=== PATIENT | male | born 1980 | race Caucasian/White ===

== ENCOUNTER 2020-08-08 08:23 | Outpatient (REF) | payer BC, SELFPAY ==
[2020-08-08 11:28] LABS: Alanine Aminotransferase 20 U/L (0-40); Albumin Level 4.4 g/dL (3.5-5.0); Alkaline Phosphatase 58 U/L (39-117); Anion Gap 12 (12-20); Aspartate Amino Transferase 19 U/L (5-37); Bilirubin Total 0.8 mg/dL (0.0-1.0); Blood Urea Nitrogen 12 mg/dL (9-16); Calcium 9.3 mg/dL (8.4-10.2); Carbon Dioxide 31 mmol/L (22-29); Chloride 105 mmol/L (96-108); Cholesterol 188 mg/dL; Estimated Glomerular Filt Rate > 60; Glucose Fasting 81 mg/dL (60-99); HDL Cholesterol 44 mg/dL; LDL Cholesterol Calculated 113 mg/dl; Sodium 144 mmol/L (135-145); Total Protein 6.9 g/dL (6.5-8.0); Triglycerides 155 mg/dL
[2020-08-08 11:51] LABS: TSH reflex Free T4 1.22 uIU/mL (0.32-4.0)
== END 2020-08-08 08:24 | disposition home or self-care (01) ==
LOC: HO.HMGCLDS 08:23
PROVIDERS: PCP Nurse Practitioner Family; Visit Provider Nurse Practitioner Family
DX: G43.909 Migraine, unspecified, not intractable, without status migrainosus (principal)
CPT/HCPCS: 36415; 80053; 80061; 84443

== ENCOUNTER 2021-07-28 20:24 | Emergency (ER) | payer BC, SELFPAY ==
[2021-07-28 20:40] VITALS: BP 147/106; PULSE 93; RESP 18; TEMP 37; O2SAT 97; BMI 26.6
[2021-07-28 21:09] VITALS: BP 148/82; PULSE 85; RESP 18; TEMP 36.6; O2SAT 97
--- NOTE | 2021-07-28 21:39 | ED_ITS ---
HPI - Back Pain/Injury General Chief Complaint: Extremity Injury, Lower Stated Complaint: Lower back pain-No inj Time Seen by Provider: 07/28/21 21:22 Source: patient Mode of arrival: ambulatory Limitations: no limitations History of Present Illness HPI Narrative: 40-year-old male who presents emergency department for evaluation of left lower back pain. The patient states that he works in the [employer] department at a [employer]. He states that yesterday he was moving tires, my fluids and other heavy car parts. He did not notice any injury at work. He states that yesterday around 20:00 hours he started to get pain in the lower lumbar center of his back and his left lower back. He describes the pain as an achy sensation is if he has pulled a muscle. The pain radiates down the back of his leg to just above his knees. He denies any numbness or weakness in his lower extremities. He denied loss of bowel or bladder control. He states the pain is a constant 9/10 pain the pain is worse with movement. He states that he rarely gets back pain. Patient took ibuprofen 400 mg twice a day and Aleve with no relief his pain . He states the pain is worse with lying down flat. Pain is also worse with movement. He denied associated symptoms such as fever, chills, cough, frequency urgency or dysuria. MD elicited complaint: back pain and back injury (Moving heavy car parts at work, pain started afterwards) Onset (ago): day(s) (2) Timing: constant Severity: severe Pain scale (0-10): 9 Similar Symptoms Previously: No Quality: aching ( feels like a pulled muscle ) and spasming Location: lumbar spine and left lower back Radiation: left upper leg and right upper leg Exacerbating factors: movement and other (Lying flat) Relieving factors: none Associated symptoms: denies other symptoms Treatments prior to arrival: NSAIDS Related Data Home Medications Medication Instructions Recorded Confirmed multivitamin 1 tab PO DAILY 08/02/20 12/08/20 Previous Rx's Medication Instructions Recorded sumatriptan succinate 25 mg tablet See Rx Instructions PO .COMPLEX 08/02/20 30 Days #10 tab amitriptyline 25 mg tablet 25 mg PO BEDTIME 30 Days #30 tab 06/11/21 cyclobenzaprine 10 mg tablet 10 mg PO TID PRN #15 tab 02/04/22 Allergies Allergy/AdvReac Type Severity Reaction Status Date / Time No Known Allergies Allergy Verified 05/08/21 15:44 Review of Systems Verdana 4l Review of Systems: Yes all other systems are reviewed and Verdana 4d are negative [facility] Past Medical History [facility] Narrative: Past medical history: None. Past surgical history: None. Social history: Patient smokes 15 cigarettes per day times 20 years. Denies alcohol use. He states he smokes marijuana daily. Family History Family History Father Prostate cancer Mother No problems noted. Social History Social History Housing: House Alcohol intake: never Patient Tobacco Use Status: Current everyday Tobacco user Cigarettes Per Day: 10 Years Smoked: 20 Advance Directives: No Advance Directives Information Provided: No Current occupational status: employed Physical Exam Verdana 4l Vital Signs: Verdana 4d Verdana 4d Vital Signs: Verdana 4d Verdana 4Bd Last Vital Signs Verdana 4d Business Office Director New 4d Business Office Director New 4d Temp 97.8 F 07/28/21 21:09 Business Office Director New 4d Pulse 85 07/28/21 21:09 Business Office Director New 4d Resp 18 07/28/21 21:09 BP 148/82 H 07/28/21 21:09 Pulse Ox 97 07/28/21 21:09 BMI result Body Mass Index 26.6 Const: General: cooperative and no acute distress Orientation/consciousness: oriented to person and oriented to place Limitations: no limitations HENMT: Head: Yes normal to inspection, Yes normocephalic and Yes atraumatic Ears: external ears normal General nose exam: Normal external nose present Face and sinus: Yes normal facial exam Mouth: Normal oral and palatal mucosa present Throat: Yes posterior oropharynx normal Eyes: General: appearance normal, both eyes and all related structures Pupils: Equal, round and reactive pupils present Neck: Neck: Yes normal visual inspection, Yes no lymphadenopathy, Yes trachea midline and Yes supple Chest: Chest palpation & inspection: normal inspection of the chest and normal palpation of entire chest wall Resp: Effort & Inspection: normal respiratory effort and able to speak in complete sentences Auscultation: clear to auscultation bilaterally Cardio: Rate: regular rate Rhythm: regular rhythm Heart sounds: S1 normal heart sound present, S2 normal heart sound present and no murmurs GI: Inspection: Yes normal to inspection Palpation (GI): Soft to palpation, nontender and no guarding Auscultation: normal bowel sounds Back/Spine/Pelvis: Other: Patient has tenderness palpation of his lumbar spine and left lumbar paraspinal muscles, there is spasm of these muscles as well. He has negative straight leg raise bilateral. Skin: General skin exam: no rashes or lesions noted Neuro: General: oriented to person and oriented to place Cranial nerves: Yes CN's II-XII intact bilaterally and Yes Equal, round and reactive pupils present Cognition (Neuro): normal cognition Motor exam (neuro): 5/5 motor strength present throughout Extrem: General: Yes normal to inspection Psych: Appearance: grossly normal Speech and movement: Normal speech and movement present Affect: normal affect Attitude: cooperative Thought process: Normal thought process present Thought content: Normal thought content present Course Course Course Narrative: 40-year-old male who presents emergency department for evaluation of left lower back pain x2 days with pain radiating down the back of his legs, no relief with NSAIDs at home. Pain is worse with lying down with movement. He has had no other associated symptoms. Physical exam is did reveal an elevated blood pressure of 147/106 but I think this is secondary to his pain. Vital signs were otherwise normal. Patient exam is consistent with musculoskeletal strain of the lumbar sacral paraspinal muscles. He was advised to take Tylenol, ibuprofen and he was prescribe cyclobenzaprine. He was given Toradol 60 mg IM here in the emergency department and cyclobenzaprine 10 mg orally. Patient was discharged home with printed and verbal instructions. Discharge Plan Discharge Clinical Impression: Acute lumbar myofascial strain Qualifiers: Encounter type: initial encounter Qualified Code(s): S39.012A - Strain of muscle, fascia and tendon of lower back, initial encounter Patient Disposition: Home, Self-Care Instructions: Acute Low Back Pain (ED) Additional Instructions: Back Pain Discharge Instructions: Take Motrin (ibuprofen) 200 mg pills, 3 pills every 6 hours as needed for pain. Take Tylenol (acetaminophen) 500 mg pills, 2 pills every 6 hours as needed for pain. Take Flexeril (cyclobenzaprine) 10 mg pills, 1 pill every 8 hours as needed for pain or muscle spasm. This is a prescription medication. This medication will make you sleepy, therefore do not drive or work while taking this medication. Apply ice for 15 minutes to the area that hurts on your back, then apply a heating a pad on low for 15 minutes. Do this 4-6 times a day to help reduce the pain in your back. Continue with normal activities as tolerated since staying in bed and not moving around will make your pain worse. You can also try over the counter lidocaine patches as directed on the box to help with the pain. Please return to the Emergency Department or see your doctor immediately if your symptoms get worse or if you develop any new symptoms that are concerning you. Follow up with your doctor in 2 day. Please read the other printed discharge instructions on back pain. Prescriptions: New cyclobenzaprine 10 mg tablet 10 mg PO TID PRN (Reason: pain, muscle spasm) Qty: 15 0RF No Action amitriptyline 25 mg tablet 25 mg PO BEDTIME 30 Days Qty: 30 2RF multivitamin Tablet 1 tab PO DAILY 0RF sumatriptan succinate 25 mg tablet See Rx Instructions PO .COMPLEX 30 Days Qty: 10 0RF Rx Instructions: take 1 tab at onset of headache; if no relief may repeat 1 tab after at least 2 hrs; max = 4 tabs/24 hr PO
[2021-07-28] MEDS: Cyclobenzaprine HCl 10 MG TABLET PO (21:52)
[2021-07-28] MEDS: Ketorolac Tromethamine 60 MG/2 ML VIAL IM (21:53)
== END 2021-07-28 22:10 | disposition home or self-care (01) ==
PROVIDERS: Emergency Provider Emergency Medicine Emergency Medical Services; PCP Nurse Practitioner Family
DX: S39.012A Strain of muscle, fascia and tendon of lower back, initial encounter (principal); X50.0XXA Overexertion from strenuous movement or load, initial encounter; Y93.89 Activity, other specified; Y92.59 Other trade areas as the place of occurrence of the external cause; Y99.0 Civilian activity done for income or pay
CPT/HCPCS: 96372; 99284; J1885

== ENCOUNTER 2022-02-12 07:29 | Outpatient (REF) | payer BC, SELFPAY ==
[2022-02-12 11:19] LABS: MANUAL DIFF FLAG NO
[2022-02-12 11:31] LABS: Basophils Absolute Auto 0.1 X10*3/uL (0.0-0.2); Basophils Percent Auto 0.9 % (0-2); Eosinophils Absolute Auto 0.3 X10*3/uL (0.0-0.4); Eosinophils Percent Auto 3.3 % (0-4); Hematocrit 41.3 % (42.0-52.0); Hemoglobin 14.7 g/dl (14.0-18.0); Imm Gran Abs Auto 0.02 X10*3/uL (0.00-0.03); Imm Gran Pct Auto 0.3 % (0.0-0.4); Lymphocytes Absolute Auto 2.8 X10*3/uL (1.2-4.9); Lymphocytes Percent Auto 35.8 % (20-40); Mean Corpuscular HGB Conc 35.6 g/dl (31.0-36.0); Mean Corpuscular Hemoglobin 32.2 pg (27.0-33.0); Mean Corpuscular Volume 90.6 fL (80.0-98.0); Monocytes Absolute Auto 0.6 X10*3/uL (0.1-1.2); Monocytes Percent Auto 7.8 % (2-11); Neutrophils Absolute Auto 4.1 x10*3/uL (2.0-8.3); Neutrophils Percent Auto 51.9 % (45-73); Platelet Count 228 X10*3/uL (160-400); Red Blood Count 4.56 X10*6/uL (4.60-5.80); Red Cell Distribution Width 12.1 % (11.0-16.0); White Blood Count 7.9 X10*3/uL (4.8-10.8)
[2022-02-12 11:34] LABS: Appearance Urine Clear; Color Urine Yellow; Glucose Urine UA Negative (Negative); Leukocyte Esterase Urine Negative (Negative); Nitrite Urine Negative (Negative); Urine Blood Large (3+) (Negative); Urine Ketones Negative (Negative); Urine Protein Negative (Neg-Trace)
[2022-02-12 11:37] LABS: Bacteria Urine None Seen (None Seen); Hyaline Casts Urine 0-2 /LPF (0-2); RBC Urine >20 /HPF (0-2); Squamous Epithelial Cell Urine 0-2 /HPF (0-2); WBC Urine 0-5 /HPF (0-5)
[2022-02-12 12:03] LABS: Alanine Aminotransferase 18 U/L (0-40); Albumin Level 4.1 g/dL (3.5-5.0); Alkaline Phosphatase 60 U/L (39-117); Anion Gap 13 (12-20); Aspartate Amino Transferase 17 U/L (5-37); Bilirubin Total 0.6 mg/dL (0.0-1.0); Blood Urea Nitrogen 8 mg/dL (9-16); Calcium 9.1 mg/dL (8.4-10.2); Carbon Dioxide 29 mmol/L (22-29); Chloride 103 mmol/L (96-108); Cholesterol 201 mg/dL; Estimated Glomerular Filt Rate > 60; Glucose Fasting 94 mg/dL (60-99); HDL Cholesterol 43 mg/dL; LDL Cholesterol Calculated 128 mg/dl; Potassium 3.9 mmol/L (3.3-5.1); Sodium 141 mmol/L (135-145); Total Protein 6.6 g/dL (6.5-8.0); Triglycerides 153 mg/dL
[2022-02-12 12:26] LABS: TSH reflex Free T4 1.34 uIU/mL (0.32-4.0)
== END 2022-02-12 07:30 | disposition home or self-care (01) ==
LOC: HO.HMGCLDS 07:29
PROVIDERS: PCP Nurse Practitioner Family; Visit Provider Nurse Practitioner Family
DX: Z00.00 Encounter for general adult medical examination without abnormal findings (principal)
CPT/HCPCS: 36415; 80053; 80061; 81001; 84443; 85025

== ENCOUNTER 2022-03-05 06:19 | Outpatient (REF) | payer BC, SELFPAY ==
[2022-03-05 11:16] LABS: Urine Cytology See Pathology rpt
[2022-03-05 11:34] LABS: Appearance Urine Clear; Color Urine Yellow; Glucose Urine UA Negative (Negative); Leukocyte Esterase Urine Negative (Negative); Nitrite Urine Negative (Negative); Specific Gravity - Urine <= 1.005 (1.005-1.025); Urine Blood Moderate (2+) (Negative); Urine Ketones Negative (Negative); Urine Protein Negative (Neg-Trace)
[2022-03-05 11:43] LABS: Bacteria Urine None Seen (None Seen); Hyaline Casts Urine 0-2 /LPF (0-2); Squamous Epithelial Cell Urine 0-2 /HPF (0-2); WBC Urine 0-5 /HPF (0-5)
[2022-03-05 11:46] LABS: UACC Culture Trigger NO
== END 2022-03-05 06:20 | disposition home or self-care (01) ==
LOC: HO.HMGCLDS 06:19
PROVIDERS: PCP Nurse Practitioner Family; Visit Provider Nurse Practitioner Family
DX: R31.29 Other microscopic hematuria (principal)
CPT/HCPCS: 81001; 87086; 88112

== ENCOUNTER 2022-03-19 15:17 | Outpatient (REF) | payer BC, SELFPAY ==
--- NOTE | ~2022-03-19 | US_ITS ---
EXAMINATION: US RETROPERITONEAL COMPLETE (RENAL) CLINICAL INFORMATION: Other microscopic hematuria. COMPARISON: None TECHNIQUE: Real-time imaging of the kidneys and bladder. FINDINGS: RIGHT KIDNEY: 9.5 x 4.8 x 6.3 cm (SAG x AP x TRV). The kidney is normal in size, contour, and echogenicity. Renal cortical thickness is normal. No hydronephrosis. Benign-appearing renal cysts measuring up to 1.2 cm, no follow-up imaging recommended. 3 mm nonobstructing right midpole renal stone. LEFT KIDNEY: 11.7 x 4.7 x 5.8 cm (SAG x AP x TRV). The kidney is normal in size, contour, and echogenicity. Renal cortical thickness is normal. No calculi or focal parenchymal lesions. No hydronephrosis. BLADDER: Well distended and normal. Bilateral ureteral jets are demonstrated. Prevoid bladder volume is 345 mL. Postvoid bladder volume is 9.97 mL. Prostate volume 24.1 mL. US/US retroperitoneal comp IMPRESSION: 3 mm nonobstructing right midpole renal stone.
== END 2022-03-19 15:18 | disposition home or self-care (01) ==
LOC: HO.HMGCX 15:17
PROVIDERS: PCP Nurse Practitioner Family; Visit Provider Nurse Practitioner Family
DX: R31.29 Other microscopic hematuria (principal)
CPT/HCPCS: 76770

== ENCOUNTER 2023-11-12 08:22 | Outpatient (AMB) | payer BC, SELFPAY ==
--- NOTE | 2023-11-12 08:25 | MHC.PC.OV ---
Vital Signs 11/12/23 08:26 11/12/23 08:53 Height 5 ft 5 in Weight 156 lb BMI 26.0 BP 130/90 H 130/82 Blood Pressure Location Rt brachial Rt brachial Position Sitting Sitting Pulse 80 Pulse Source Pulse Oximeter Pulse Oximetry (%) 98 Oxygen Delivery Method Room Air Intake Visit Reasons: PE Intake Note: Patient here for physical exam. Allergies No Known Allergies Allergy (Verified 11/12/23 08:51) Medication List - Last Reconciled 11/12/23 by YEYO Lazaro amitriptyline 25 mg PO BEDTIME 30 days multivitamin 1 tab PO DAILY Tobacco use date assessed: 11/12/23 Dental Screening Dental Screen Date: 11/12/23 Did you have a dental visit in the last 12 months?: Yes Did you have a dental problem in the last 6 months where you did not have access to dental care?: No Was dental information given to patient?: Patient has dentist HPI PE HPI Details Pt is here for a PE. Will order labs. Pt reports an area of macular erythema to his upper abdomen (tinea). Will send cream. [facility] Family History Father Prostate cancer Mother No problems noted. Social History Housing: House Alcohol intake: never Patient Tobacco Use Status: Current everyday Tobacco user Cigarettes Per Day: 10 Years Smoked: 20 e-Cigarette/Vaping Use: Never Used Second Hand Smoke Exposure: No service: No Current occupational status: employed Current occupation: [employer] Cognitive needs: No Hearing needs: No Vision needs: No Questionnaire PHQ-9 Over the last 2 weeks, how often have you been bothered by any of the following problems? 1. Little interest or pleasure in doing things: not at all 2. Feeling down, depressed, or hopeless: not at all 3. Trouble falling or staying asleep, or sleeping too much: not at all 4. Feeling tired or having little energy: not at all 5. Poor appetite or overeating: not at all 6. Feeling bad about yourself - or that you are a failure or have let yourself or your family down: not at all 7. Trouble concentrating on things, such as reading the newspaper or watching television: not at all 8. Moving or speaking so slowly that other people could have noticed. Or the opposite - being so fidgety or restless that you have been moving around a lot more than usual: not at all 9. Thoughts that you would be better off or of hurting yourself in some way: not at all Total score: 0 Depression Screening Interpretation: Negative Depression Screening Done: Yes 52109 - PHQ-9 Billing: Yes Source: Developed by Drs. Suhas De Guzman, Lakeshia Hanson, Pavan Platt and colleagues, with an educational kirit from [employer]. Thrive Questionnaire Date Thrive assessed: 11/12/23 I am a: Patient What is your living situation today?: I have a steady place to live Within the past 12 months, did the food you bought not last and you didn't have the money to get more?: Never true Within the past 12 months, did you worry whether your food would run out before you got money to buy more?: Never true Do you have trouble paying for medicines?: No Do you have trouble getting transportation to medical appointments?: No Do you have trouble paying your heating and electricity bill?: No Do you have trouble taking care of your child, family member or friend?: No Do you have trouble with day-to-day activities such as bathing, preparing meals, shopping, managing finances, etc.?: No Are you currently unemployed and looking for a job?: No Are you interested in more education?: No Currently or been in a relationship where the following occur: I choose not to answer this question THRIVE Score: 0 AUDIT C Alcohol Use Questionnaire (AUDIT-C) 1. How often do you have a drink containing alcohol?: Never 3. How often do you have six or more drinks on one occasion?: Never Total Score: 0 Score Reviewed/Action Taken: No JESSICA-7 AMB Questionnaire JESSICA-7 Date JESSICA - 7 assessed: 11/12/23 Feeling nervous, anxious, or on edge: 0 = Not at all Not being able to stop or control worryin = Not at all Worrying too much about different things: 0 = Not at all Trouble relaxin = Not at all Being so restless that it is hard to sit still: 0 = Not at all Becoming easily annoyed or irritable: 0 = Not at all Feeling afraid as if something awful might happen: 0 = Not at all Total JESSICA-7 score (0-4 normal; 5-9 mild; 10-14 moderate; 15-21 severe): 0 Source: Developed by Drs. Suhas De Guzman, Lakeshia Hanson, Pavan Platt and colleagues, with an educational kirit from [employer]. JESSICA-7 Assessment Billing JESSICA-7 Assessment Tool: JESSICA-7 Assessment 53350 Review of Systems Const Denies chills and Denies fever(s) Eyes Denies blurry vision ENT Denies vertigo, Denies dizziness and Denies sore throat Card Denies chest pain at rest, Denies chest pain with activity, Denies diaphoresis, Denies dyspnea and Denies dyspnea on exertion Resp Denies cough, Denies dyspnea, Denies dyspnea on exertion and Denies wheezing GI Denies abdominal pain, Denies melena, Denies hematochezia, Denies constipation, Denies diarrhea and Denies loose stools Denies hematuria Musc Denies numbness and Denies tingling Skin/Breast Denies lesions Neuro Denies vertigo, Denies dizziness, Denies numbness and Denies tingling Psych Denies anxiety, Denies depression, Denies homicidal ideation, Denies suicidal ideation and Denies other (substance abuse) Aller/Immun Denies wheezing Physical exam (Primary Care) Vital Signs: Last Vital Signs Pulse 80 11/12/23 08:26 BP 130/82 11/12/23 08:53 Pulse Ox 98 11/12/23 08:26 Oxygen Delivery Method Room Air 11/12/23 08:26 BMI result Body Mass Index 26.0 Tobacco/Smoking Status: Tobacco use Status Tobacco use date assessed 11/12/23 11/12/23 08:29 Patient Tobacco Use Status Current everyday Tobacco 11/12/23 08:26 e-Cigarette/Vaping Use Never Used 11/12/23 08:26 Depression Screening Interpretation: Negative Thrive Assessment: Date of Thrive Assessment Date Thrive assessed 10/30/22 11/12/23 08:26 Currently or been in a relationship where the following occur: I choose not to answer this question Const General: cooperative Nutritional Appearance: well nourished Orientation/consciousness: patient oriented x3 HENMT Head: Yes normal to inspection, Yes normocephalic and Yes atraumatic Ears: TM's normal bilaterally Eyes General: appearance normal, both eyes and all related structures Alignment and Position: alignment normal and position normal Neck Neck: Yes normal visual inspection and Yes no lymphadenopathy Thyroid: Thyroid normal Resp Effort & Inspection: normal respiratory effort Auscultation: clear to auscultation bilaterally Cardio Rate: regular rate Rhythm: regular rhythm Heart sounds: S1 normal heart sound present, S2 normal heart sound present and no murmurs GI Palpation (GI): Soft to palpation and nontender Auscultation: normal bowel sounds Male General Exam: Yes normal external exam Penis: normal penis Scrotum: scrotum normal, testes descended bilaterally and no inguinal hernias Testes: no testicular mass Skin Other: upper abdomen with area of macular erythema, dry appearing (tinea) Neuro General: patient oriented x3, moves all extremities, no focal motor deficits and deep tendon reflexes 2+ bilaterally Romberg Test: Negative Psych Appearance: grossly normal Mental Status: mental status grossly normal Speech and movement: Normal speech and movement present Affect: normal affect Attitude: cooperative Thought process: Normal thought process present Thought content: Normal thought content present Insight: Good insight present (Psych) Judgement: Good judgement present (Psych) Assessment and Plan Assessment & Plan (1) Tinea versicolor: Code(s): B36.0 - Pityriasis versicolor Plan: cream sent (2) Encounter for routine adult physical exam with abnormal findings: Code(s): Z00.01 - Encounter for general adult medical examination with abnormal findings Plan The patient agreed to the use of a medical records receptionist for this encounter. Scribed for YEYO Walter by Casie Stern medical records receptionist, on 11/12/2023 at 08:55 EST. Orders: Orders Complete Blood Count Auto Diff Today Z00.00 - Encounter for general adult medical examination without abnormal findings TSH reflex Free T4 Today Z00.00 - Encounter for general adult medical examination without abnormal findings Lipid Panel Today Z00.00 - Encounter for general adult medical examination without abnormal findings Comprehensive [place]. Panel Fast Today Z00.00 - Encounter for general adult medical examination without abnormal findings UA CC w/rflx Micro + Cult Today Z00.00 - Encounter for general adult medical examination without abnormal findings Medications: New ketoconazole 2% 1 appl topical BID PRN 60 grams 0RF fungal rash Coding Level of Care Code Est Pt Prev Care 40-64y(28854) Diagnoses Tinea versicolor B36.0 Encounter for routine adult physical exam with abnormal findings Z00.01 Additional Codes JESSICA-7 Assessment Billing - JESSICA-7 Assessment Tool: JESSICA-7 Assessment 11229 ([id number])
[2023-11-12 08:26] VITALS: BP 130/90; PULSE 80; O2SAT 98; BMI 26.0
[2023-11-12 08:53] VITALS: BP 130/82
== END 2023-11-12 09:04 | disposition home or self-care (01) ==
PROVIDERS: Visit Provider Nurse Practitioner Family
DX: Z00.01 Encounter for general adult medical examination with abnormal findings (principal); B36.0 Pityriasis versicolor
CPT/HCPCS: 99213; 99396

== ENCOUNTER 2023-11-12 09:04 | Outpatient (REF) | payer BC, SELFPAY ==
[2023-11-12 10:22] LABS: MANUAL DIFF FLAG NO
[2023-11-12 10:28] LABS: Appearance Urine Clear; Color Urine Yellow; Glucose Urine UA Negative (Negative); Leukocyte Esterase Urine Negative (Negative); Nitrite Urine Negative (Negative); PH 8.5 (5.0-9.0); UMIC TRIGGER UACC YES; Urine Blood Large (3+) (Negative); Urine Ketones Negative (Negative); Urine Protein Negative (Neg-Trace)
[2023-11-12 10:33] LABS: Bacteria Urine None Seen (None Seen); Basophils Absolute Auto 0.1 X10*3/uL (0.0-0.2); Basophils Percent Auto 0.6 % (0-2); Eosinophils Absolute Auto 0.2 X10*3/uL (0.0-0.4); Eosinophils Percent Auto 2.5 % (0-4); Hematocrit 41.7 % (42.0-52.0); Hemoglobin 14.7 g/dl (14.0-18.0); Hyaline Casts Urine 0-2 /LPF (0-2); Imm Gran Abs Auto 0.02 X10*3/uL (0.00-0.03); Imm Gran Pct Auto 0.2 % (0.0-0.4); Lymphocytes Absolute Auto 2.1 X10*3/uL (1.2-4.9); Lymphocytes Percent Auto 24.5 % (20-40); Mean Corpuscular HGB Conc 35.3 g/dl (31.0-36.0); Mean Corpuscular Hemoglobin 31.6 pg (27.0-33.0); Mean Corpuscular Volume 89.7 fL (80.0-98.0); Mean Platelet Volume 9.9 fL (9.4-12.4); Monocytes Absolute Auto 0.6 X10*3/uL (0.1-1.2); Monocytes Percent Auto 7.2 % (2-11); Neutrophils Absolute Auto 5.4 x10*3/uL (2.0-8.3); Platelet Count 232 X10*3/uL (160-400); RBC Urine >20 /HPF (0-2); Red Blood Count 4.65 X10*6/uL (4.60-5.80); Red Cell Distribution Width 12.1 % (11.0-16.0); Squamous Epithelial Cell Urine 0-2 /HPF (0-2); WBC Urine 0-5 /HPF (0-5); White Blood Count 8.4 X10*3/uL (4.8-10.8)
[2023-11-12 11:14] LABS: Alanine Aminotransferase 18 U/L (0-40); Albumin Level 4.2 g/dL (3.5-5.0); Alkaline Phosphatase 57 U/L (39-117); Anion Gap 14 (12-20); Aspartate Amino Transferase 17 U/L (5-37); Bilirubin Total 0.8 mg/dL (0.0-1.0); Blood Urea Nitrogen 8 mg/dL (9-16); Calcium 9.6 mg/dL (8.4-10.2); Carbon Dioxide 27 mmol/L (22-29); Chloride 104 mmol/L (96-108); Cholesterol 183 mg/dL (<200); Estimated Glomerular Filt Rate > 60; Glucose Fasting 90 mg/dL (60-99); HDL Cholesterol 42 mg/dL (>40); LDL Cholesterol Calculated 106 mg/dL (<100); Sodium 141 mmol/L (135-145); Total Protein 6.6 g/dL (6.5-8.0); Triglycerides 179 mg/dL (<150)
[2023-11-12 11:22] LABS: TSH reflex Free T4 1.06 uIU/mL (0.32-4.0)
== END 2023-11-12 09:05 | disposition home or self-care (01) ==
LOC: HO.HMGCLDS 09:04
PROVIDERS: PCP Nurse Practitioner Family; Visit Provider Nurse Practitioner Family
DX: Z00.00 Encounter for general adult medical examination without abnormal findings (principal)
CPT/HCPCS: 36415; 80053; 80061; 81001; 84443; 85025

== ENCOUNTER 2024-01-21 09:51 | Outpatient (REF) | payer BC, SELFPAY ==
--- NOTE | ~2024-01-21 | CT_ITS ---
EXAMINATION: CT UROGRAM - CT ABDOMEN AND PELVIS WITHOUT AND WITH CONTRAST CLINICAL INFORMATION: Microscopic hematuria. COMPARISON: Renal ultrasound 03/19/2022. TECHNIQUE: Multidetector volumetric imaging was performed through the abdomen prior to IV contrast. The abdomen and pelvis were then reexamined after the administration of 85 mL of Omnipaque 350 0 intravenous contrast. Additional 2-D coronal and sagittal reformatted images and axial 3-D maximum intensity projection MIP images are generated on the CT workstation. This CT examination was performed using dose optimization techniques as appropriate, variously including the following: *Automated exposure control. *Adjustment of mA and/or kV according to patient size (this includes techniques or standardized protocols for targeted exams where dose is matched to indication/reason for exam; i.e. extremities or head). *Use of iterative reconstruction technique. DLP: 507 mGy-cm UROGRAPHIC FINDINGS: Noncontrast imaging through the kidneys ureters and bladder show no urinary tract calculi. After the injection of contrast, there was prompt excretion bilaterally with symmetric CT nephrograms. The right kidney measures 10.7 cm and the left kidney measures 11.6 cm in maximal length. Bilateral benign Bosniak class I renal cysts are noted with a tiny subcentimeter cyst at the lower pole of the left kidney and 2 cysts on the right, the largest at the lower pole measuring 1.7 cm. These require no additional imaging or follow-up. No solid renal masses are seen. The renal collecting systems and the ureters appear normal without filling defects or mucosal abnormalities. There are single ureters on each side which follow a normal course to the bladder. The bladder appears unremarkable. Bilateral ureteral jets are seen. NON-UROGRAPHIC FINDINGS: Lung Bases: The visualized lung bases are unremarkable. Liver, Gallbladder and Biliary Tree: The liver is normal in size, shape, and attenuation. No focal hepatic lesion or biliary ductal dilatation is present. The gallbladder is unremarkable with no evidence of radiopaque gallstones, gallbladder wall thickening, or obvious pericholecystic inflammatory changes. Pancreas: Unremarkable. Spleen: Unremarkable. Adrenal Glands: Unremarkable. Gastrointestinal Tract: The small and large bowel are unremarkable. The appendix is unremarkable. Abdominal Wall: No significant hernia is appreciated. Lymph Nodes: No retroperitoneal lymphadenopathy. Vascular: Unremarkable. Pelvic Viscera: The prostate and seminal vesicles are unremarkable. Osseous Structures: Degenerative changes are seen in the lower thoracic spine. No bony destructive lesions. CT/CT urogram IMPRESSION: A cause for the patient's hematuria has not been found. Incidental note made of benign Bosniak class I renal cysts which require no additional imaging or follow-up. Electronically signed by: Edwin Catalan MD 02/27/2024 09:52 PM EDT
[2024-01-21] MEDS: iohexoL 350 MG/ML 75 ML INFUS..BTL 85 ML IV (10:26)
== END 2024-01-21 09:52 | disposition home or self-care (01) ==
LOC: HO.CT 09:51
PROVIDERS: PCP Nurse Practitioner Family; Visit Provider Nurse Practitioner Family
DX: R31.29 Other microscopic hematuria (principal)
CPT/HCPCS: 74178; 81003; Q9967

== ENCOUNTER 2024-01-21 13:48 | Outpatient (AMB) | payer BC, SELFPAY ==
--- NOTE | 2024-01-21 13:51 | A.OFFVIS_ITS ---
Intake Visit Reasons: chronic microscopic hematuria Intake Note: New Patient presents for initial visit for microscopic hematuria Urology Medications: none Blood Thinner: none Service Observer Chief Required: No Accompanied by: Self / Same As Patient Allergies No Known Allergies Allergy (Verified 01/21/24 14:44) Medication List - Last Reconciled 01/21/24 by YEYO Plata amitriptyline 25 mg PO BEDTIME 30 days ketoconazole 2% 1 appl topical BID PRN multivitamin 1 tab PO DAILY HPI Comments Details: Suhas Bustos is a very pleasant 43-year-old male patient of Dr. Abernathy. He presents to the office today as a new patient for microscopic hematuria. He reports having followed up with his PCP for his annual visit at which time urinalysis noted microscopic hematuria and referral was made for urology for further assessment evaluation. He reports having had CT urogram earlier this morning. In discussion with the patient today he reports a longstanding history of nicotine dependence for over 22 years. He reports smoking approximately half a pack per day. He otherwise denies any bothersome urinary issues or concerns. He denies denies urinary urgency, urinary frequency, incontinence, nocturia, hematuria, dysuria, foul smelling urine, changes to urinary stream, flank pain, fever, and or chills. He is happy with his current voiding parameters. Discussed at length potential causes of microscopic hematuria in the setting of nicotine dependence. I discussed reasons for blood in the urine may include but are not limited to kidney stones, cancer in the urinary tract, BPH, kidney stone disease or inflammatory conditions of the urinary tract. I have discussed workup to include cystoscopy evaluation. In office urinalysis results reviewed with the patient today 3+ microscopic hematuria. He otherwise offers no other issues or concerns at this time. [facility] Family History Father Prostate cancer Mother No problems noted. Social History Housing: House Alcohol intake: never Patient Tobacco Use Status: Current everyday Tobacco user Cigarettes Per Day: 10 Years Smoked: 20 e-Cigarette/Vaping Use: Never Used Second Hand Smoke Exposure: No service: No Current occupational status: employed Current occupation: [employer] Cognitive needs: No Hearing needs: No Vision needs: No Review of Systems Const All systems reviewed & are unremarkable except as noted in HPI and below Physical Exam Const General: cooperative, healthy appearing, comfortable, no acute distress, well developed, alert and awake Orientation/consciousness: patient oriented x3 Limitations: no limitations HEENT Head: Yes normal to inspection, Yes normocephalic and Yes atraumatic Ears: hearing grossly normal bilaterally Eyes General: appearance normal, both eyes and all related structures Neck Neck: Yes normal visual inspection and Yes trachea midline Chest Chest palpation & inspection: normal inspection of the chest Resp Effort & Inspection: normal respiratory effort and able to speak in complete sentences Cardio Rate: regular rate GI Inspection: Yes normal to inspection General: Yes no CVA tenderness Back/Spine/Pelvis Back: no CVA tenderness Skin General skin exam: no rashes or lesions noted Neuro General: patient oriented x3 Extrem General: Yes normal to inspection Psych Appearance: grossly normal and well kempt Mental Status: mental status grossly normal Speech and movement: Normal speech and movement present and Clear speech present Affect: normal affect Attitude: cooperative Thought process: Normal thought process present Thought content: Normal thought content present Insight: Fair insight present (Psych) Judgement: Fair judgement present (Psych) Results AMB Urinalysis, Automated UA Leukoctes 0 Marva/uL Last Edit by Carbonated Content on 01/21/24 14:19 UA Nitrite Negative Last Edit by Carbonated Content on 01/21/24 14:19 UA Urobilinogen 0.2 mg/dL Last Edit by Carbonated Content on 01/21/24 14:19 UA Protein 15 mg/dL Last Edit by Carbonated Content on 01/21/24 14:19 UA pH 6.5 Last Edit by Carbonated Content on 01/21/24 14:19 UA Blood 200 Yoshi/uL Last Edit by Carbonated Content on 01/21/24 14:19 UA Specific [place] 1.005 Last Edit by Carbonated Content on 01/21/24 14:19 UA Ketone Negative Last Edit by Carbonated Content on 01/21/24 14:19 UA Bilirubin 0 mg/dL Last Edit by Carbonated Content on 01/21/24 14:19 UA Glucose 0 mg/dL Last Edit by Carbonated Content on 01/21/24 14:19 Results Reviewed Results Reviewed: Laboratory Last Values Urine pH (Auto) 6.5 01/21/24 14:18 Specific [place] (Auto) 1.005 01/21/24 14:18 Urine Protein (Auto) 15 mg/dL 01/21/24 14:18 Glucose (UA)(Auto) 0 mg/dL 01/21/24 14:18 Urine Ketones (Auto) Negative 01/21/24 14:18 Urine Blood (Auto) 200 Yoshi/uL 01/21/24 14:18 Urine Nitrite (Auto) Negative 01/21/24 14:18 Urine Bilirubin (Auto) 0 mg/dL 01/21/24 14:18 Urine Urobilinogen (Auto) 0.2 mg/dL 01/21/24 14:18 Leukocyte Esterase (Auto) 0 Marva/uL 01/21/24 14:18 Assessment & Plan Assessment & Plan (1) Nicotine dependence: Code(s): F17.200 - Nicotine dependence, unspecified, uncomplicated Category: Medical (2) Microhematuria: Code(s): R31.29 - Other microscopic hematuria Category: Medical Plan In office urinalysis results reviewed with the patient today; as noted above; will send for urine cytology. CT urogram pending Discussed at length potential causes of microscopic hematuria in the setting of nicotine dependence. Discussed further workup to include in office cystoscopy however patient declines at this time; information provided Patient otherwise denies any bothersome urinary issues or concerns. He reports be happy with current voiding parameters. Follow-up in 3 months with imaging and urine cytology to be completed prior; or sooner with any issues, concerns, and or questions. Orders: Orders Urine Cytology Today R31.29 - Other microscopic hematuria AMB Urinalysis Automated Today Z13.9 - Encounter for screening, unspecified Patient Instructions: The patient had an opportunity to ask questions regarding the treatment plan. All questions were answered. Physical exam, labs, and imaging were discussed and reviewed in detail. As well as risks, benefits, and discussion of treatment choices. No major barriers to understanding were identified. The patient expressed understanding and agreement with the above treatment plan. The patient was made aware they should contact our office by phone for worsening of their current condition, the appearance of new symptoms, or with any questions or concerns. Compliance is encouraged with any medications and follow up testing that is ordered. It is a privilege to be allowed the opportunity to participate in? your urological care.? Again, if you have any questions or concerns If you have any questions or concerns please do not hesitate to contact me. The office is [phone]. This note is constructed using voice recognition software. While every effort has been made to ensure accuracy manager errors may have been included. Yours sincerely, YEYO Plata Coding Level of Care Code New Pt Level 3 (97269) Diagnoses Nicotine dependence F17.200 Microhematuria R31.29
== END 2024-01-21 14:30 | disposition home or self-care (01) ==
PROVIDERS: PCP Nurse Practitioner Family; Visit Provider Nurse Practitioner Family
DX: F17.200 Nicotine dependence, unspecified, uncomplicated (principal); R31.29 Other microscopic hematuria; Z13.9 Encounter for screening, unspecified
CPT/HCPCS: 99203

== ENCOUNTER 2024-01-21 16:01 | Outpatient (REF) | payer BC, SELFPAY ==
[2024-01-21 16:39] LABS: Urine Cytology See Pathology rpt
== END 2024-01-21 16:02 | disposition home or self-care (01) ==
LOC: HO.LAB 16:01
PROVIDERS: Visit Provider Nurse Practitioner Family
DX: R31.29 Other microscopic hematuria (principal)
CPT/HCPCS: 88112

== ENCOUNTER 2024-03-17 14:42 | Outpatient (AMB) | payer BC, SELFPAY ==
--- NOTE | 2024-03-17 15:00 | MHC.OFFVIS ---
Intake Visit Reasons: cysto Intake Note: Patient is present for Cystoscopy Urology Medication:NONE Antibiotic Allergy:NONE Blood Thinner:NONE Lot:[id number] Exp:04/27/27 Ship/Rec/Doc Control Required: No Allergies No Known Allergies Allergy (Verified 03/17/24 15:01) HPI Comments Details: Akash is a pleasant male. He is a patient of Dr. Aguilera. He is seen for the following urologic conditions - microscopic hematuria Office cystoscopy normal Microscopic hematuria CT urogram negative Longstanding history nicotine dependent so 22 years Proximally 10 year pack per day nicotine have it PFSH Medical History (Updated 02/29/24 @ 13:02 by Phillip Abernathy, [facility]) Bilateral renal cysts Family History Father Prostate cancer Mother No problems noted. Social History Housing: House Alcohol intake: never Patient Tobacco Use Status: Current everyday Tobacco user Cigarettes Per Day: 10 Years Smoked: 20 e-Cigarette/Vaping Use: Never Used Second Hand Smoke Exposure: No service: No Current occupational status: employed Current occupation: [employer] Cognitive needs: No Hearing needs: No Vision needs: No Review of Systems Const Denies chills and Denies fever(s) Card Reports no additional complaints and Denies syncope Resp Denies cough GI Denies abdominal pain and Denies heartburn Reports as per HPI and Denies change in libido Neuro Denies syncope Psych Denies change in libido Endo Denies change in libido Physical Exam Const General: cooperative, healthy appearing, comfortable and no acute distress Orientation/consciousness: patient oriented x3 HEENT Face and sinus: Yes normal facial exam Mouth: moist mucous membranes Neck Neck: Yes normal visual inspection, Yes full ROM and Yes trachea midline Chest Chest palpation & inspection: normal inspection of the chest Resp Effort & Inspection: normal respiratory effort, able to speak in complete sentences and no respiratory distress GI Inspection: Yes normal to inspection Back/Spine/Pelvis Cervical Spine: normal cervical lordosis Thoracic/Lumbar Spine: thoracic and lumbar spine normal to inspection Skin General skin exam: no rashes or lesions noted Neuro General: patient oriented x3, gait normal, tone normal and moves all extremities Extrem General: Yes normal to inspection and Yes capillary refill normal Office Procedures Cystoscopy Consent Discussed risk and benefit or proposed procedure with the patient. Information consent for procedure given to the patient. Discussed technical aspects, risks, benefits and alternatives in full. Addressed all of the patient's questions and concerns regarding the procedure. The patient demonstrated knowledge and understanding. They wish to proceed with this procedure. Preparation The patient was prepped in the usual manner. A motor teacher was present and in the room. Genitalia was prepped with betadine solution in a sterile manner. Lidocaine Jelly 2% was placed into the urethra and 16Fr flexible Olympus cystoscope was inserted into the meatus after adequate lubrication. Procedure Cystoscopy performed using a disposable Urovue digital 16 Wolof cystoscope. Meatus circumcised Urethra anterior and posterior urethra normal Prostatic Urethra unremarkable Bladder examination with retroflexion of cystoscope Bladder Orifices normal shape and position Bladder Capacity median Trabeculations normal Cellule Formation - Diverticulum Formation - Mucosal Erythema - Bladder Tumor - [id number] DISPOSABLE SCOPE URO-G FLEXIBLE SCOPE Procedure code (CPT) selection complete Office Meds lidocaine HCl 2 % mucosal jelly in applicator Performing Provider: Alberto Hayes MD Performing Location: [facility] [place] [facility] Administered by: Pete Lim LPN on 03/17/24 15:16 Dose Route Admin Location Dispensed Lot Number Expiration Date ND Mental Telepathist 10 mL intra-urethral 10 mL nitrofurantoin monohydrate/macrocrystals 100 mg capsule Performing Provider: Alberto Hayes MD Performing Location: [facility] [place] [facility] Administered by: Pete Lim LPN on 03/17/24 15:16 Dose Route Admin Location Dispensed Lot Number Expiration Date NDC Mental Telepathist 100 mg PO 1 cap naproxen 500 mg tablet Performing Provider: Alberto Hayes MD Performing Location: [facility] [place] [facility] Administered by: Pete Lim LPN on 03/17/24 15:16 Dose Route Admin Location Dispensed Lot Number Expiration Date NDC Mental Telepathist 500 mg PO 1 tab Assessment & Plan Assessment & Plan (1) Microhematuria: Code(s): R31.29 - Other microscopic hematuria Category: Medical Plan One year follow-up nurse-practitioner Orders: Orders AMB Cystoscopy 03/17/24 R31.29 - Other microscopic hematuria Patient Instructions: Imaging studies, laboratory and physical exam results were discussed and reviewed in detail. No major barriers to patient understanding were identified. An opportunity to ask questions regarding the treatment plan was provided. All questions were answered. The patient expressed understanding and agreement with the above treatment plan. The patient is aware they should contact our office by phone for worsening of their current condition or the appearance of new urologic symptoms. Compliance is encouraged with any medications and followup testing that is ordered. It is a privilege to participate in the urologic care of your patient. If you have any questions or concerns regarding treatment for the above conditions, or other urologic issues, please do not hesitate to contact me. The office telephone contact is [phone]. This note is constructed using voice recognition software. While every effort has been made to ensure accuracy simulation engineer errors may have been included. Yours sincerely, Dr Alberto Hayes MD, [facility] - Urology Providers of Expert, Compassionate Care for the Genitourinary System Coding Level of Care Code Est Pt Level 3 (89728) Diagnoses Microhematuria R31.29 CPT Codes Cystoscopy - CPT: 29307-[id number] ([id number])
== END 2024-03-17 16:04 | disposition home or self-care (01) ==
PROVIDERS: PCP Nurse Practitioner Family; Visit Provider Urology
DX: R31.29 Other microscopic hematuria (principal)
CPT/HCPCS: 52000

== ENCOUNTER → 2024-03-17 14:42 | Outpatient (BNVA) | payer BC, SELFPAY | PROVIDERS: PCP Nurse Practitioner Family; Visit Provider Urology | DX: R31.29 Other microscopic hematuria (principal) | CPT/HCPCS: 52000 ==

== ENCOUNTER 2025-03-03 13:33 | Outpatient (AMB) | payer BC, SELFPAY ==
[2025-03-03 13:35] VITALS: BP 144/78; PULSE 68; RESP 18; TEMP 37.2; O2SAT 98; BMI 27.1
--- NOTE | 2025-03-03 13:35 | A.OFFPC_ITS ---
Vital Signs 03/03/25 13:35 Height 5 ft 5 in Weight 163 lb BMI 27.1 BP 144/78 H Blood Pressure Location Lt brachial Position Sitting Respiration 18 Pulse 68 Pulse Source Pulse Oximeter Temp 98.9 F Temp Source Oral Pulse Oximetry (%) 98 Oxygen Delivery Method Room Air Intake Visit Reasons: Annual PE Intake Note: Pt is here today for PE. Allergies No Known Allergies Allergy (Verified 03/03/25 13:37) Medication List - Last Reconciled 03/03/25 by MAX Lazaro- amitriptyline 25 mg PO BEDTIME 30 days ketoconazole 2% 1 appl topical BID PRN multivitamin 1 tab PO DAILY Tobacco use date assessed: 03/03/25 Dental Screening Dental Screen Date: 03/03/25 Did you have a dental visit in the last 12 months?: Yes Did you have a dental problem in the last 6 months where you did not have access to dental care?: No Was dental information given to patient?: Patient has dentist HPI Annual PE HPI Details History of Present Illness The patient is a 44-year-old male presenting with a physical exam and management of ongoing migraines. He experiences severe migraines weekly, sometimes daily, leading to nausea and vomiting. The migraines start in the frontal region and radiate to the occipital area. Excedrin Migraine provides some relief but causes a fuzzy feeling. Pt further describes photophobia, sonophobia, anosmia. The patient has a history of kidney cysts and microhematuria, managed by a urologist. He reports nocturnal palpitations, described as a heavy heart, without chest pain or radiating symptoms. He has tinea corporis with small erythematous macular lesions on the anterior torso, treated with a cream. Health Maintenance - Neurology referral for migraine manage ment - MRI ordered for further evaluation of migraines - EKG planned for evaluation of palpitat ions Social History Review of Systems - Neurological: Reports severe migraines weekly, sometimes daily, with nausea and vomiting. Denies other neurological symptoms. - Cardiovascular: Reports palpitations a t night when lying still, described as a heavy heart. Denies chest pain or radiating symptoms to the upper extremities. Physical Exam General: Cooperative, healthy appearing, comfortable, no acute distress and well developed Orientation: Patient oriented x3 Limitations: No limitations Head: Normal to inspection Ears: Hearing grossly normal bilaterally Nose: Normal external nose present Face and sinus: Normal facial exam Eyes: Appearance normal, both eyes and all related structures Neck: Normal visual inspection and Yes full ROM Respiratory: Normal respiratory effort and able to speak in complete sentences. Clear to auscultation bilaterally Cardiovascular: Regular rate and rhythm. Normal S1 and S2. GI: Normal to inspection. Soft to palpation and nontender : Testicles without masses/lesions and no hernias appreciated. Skin: Small erythematous circular macular lesions on anterior upper torso Neuro: Patient oriented x3. CN3 through 12 intact Extremities: Normal to inspection Results Plan 1. Migraine The patient will continue using Excedrin Migraine for symptomatic relief. Magnesium 400 mg at night and vitamin B2 in the morning are recommended as preventative measures. A neurology referral is planned for further evaluation and management. An MRI is ordered to assess the underlying cause of the migraines. 2. Palpitations An EKG is planned to evaluate the reported palpitations. The patient denies any associated chest pain or radiating symptoms. 3. Tinea Corporis The patient is using a topical cream for the treatment of tinea corporis. 4. HTN: [facility] have [facility] and send myself values. Discussion Notes I discussed with the patient the management of his migraines, including the continuation of Excedrin Migraine and the addition of magnesium and vitamin B2 as preventative measures. We also talked about the need for a neurology referral and an MRI to further evaluate his condition. An EKG was recommended to assess his palpitations, and the patient was informed about the importance of monitoring for any new symptoms. Patient Instructions - Continue taking Excedrin Migraine as n eeded for headache relief. - Start taking magnesium 400 mg at night and vitamin B2 in the morning. - Follow up with neurology for further e valuation of migraines. - Undergo an MRI as scheduled. - Get an EKG done today to evaluate palp itations. -take BP at home and send me values -cream for tinea PFSH Medical History Bilateral renal cysts Surgical History No pertinent past surgical history Family History Father Prostate cancer Mother No problems noted. Social History Housing: House Alcohol intake: never Patient Tobacco Use Status: Current everyday Tobacco user Cigarettes Per Day: 10 Years Smoked: 20 e-Cigarette/Vaping Use: Never Used Second Hand Smoke Exposure: No service: No Current occupational status: employed Current occupation: [employer] Cognitive needs: No Hearing needs: No Vision needs: No Questionnaire PHQ-9 Over the last 2 weeks, how often have you been bothered by any of the following problems? 1. Little interest or pleasure in doing things: not at all 2. Feeling down, depressed, or hopeless: not at all 3. Trouble falling or staying asleep, or sleeping too much: not at all 4. Feeling tired or having little energy: not at all 5. Poor appetite or overeating: not at all 6. Feeling bad about yourself - or that you are a failure or have let yourself or your family down: not at all 7. Trouble concentrating on things, such as reading the newspaper or watching television: not at all 8. Moving or speaking so slowly that other people could have noticed. Or the opposite - being so fidgety or restless that you have been moving around a lot more than usual: not at all 9. Thoughts that you would be better off or of hurting yourself in some way: not at all Total score: 0 Depression Screening Interpretation: Negative Depression Screening Done: Yes 26317 - PHQ-9 Billing: Yes Source: Developed by Drs. Suhas De Guzman, Lakeshia Hanson, Pavan Platt and colleagues, with an educational kirit from [employer]. Thrive Questionnaire Date Thrive assessed: 03/03/25 I am a: Patient What is your living situation today?: I have a steady place to live Within the past 12 months, did the food you bought not last and you didn't have the money to get more?: Never true Within the past 12 months, did you worry whether your food would run out before you got money to buy more?: Never true Do you have trouble paying for medicines?: No Do you have trouble getting transportation to medical appointments?: No Do you have trouble paying your heating and electricity bill?: No Do you have trouble taking care of your child, family member or friend?: No Do you have trouble with day-to-day activities such as bathing, preparing meals, shopping, managing finances, etc.?: No Are you currently unemployed and looking for a job?: No Are you interested in more education?: No Please select the resources that you would like help with: None Currently or been in a relationship where the following occur: No concerns reported THRIVE Score: 0 AUDIT C Alcohol Use Questionnaire (AUDIT-C) 1. How often do you have a drink containing alcohol?: Never 3. How often do you have six or more drinks on one occasion?: Never Total Score: 0 Score Reviewed/Action Taken: No JESSICA-7 AMB Questionnaire JESSICA-7 Date JESSICA - 7 assessed: 03/03/25 Feeling nervous, anxious, or on edge: 0 = Not at all Not being able to stop or control worryin = Not at all Worrying too much about different things: 0 = Not at all Trouble relaxin = Not at all Being so restless that it is hard to sit still: 0 = Not at all Becoming easily annoyed or irritable: 0 = Not at all Feeling afraid as if something awful might happen: 0 = Not at all Total JESSICA-7 score (0-4 normal; 5-9 mild; 10-14 moderate; 15-21 severe): 0 Source: Developed by Drs. Suhas De Guzman, Lakeshia Hanson, Paavn Platt and colleagues, with an educational kirit from [employer]. JESSICA-7 Assessment Billing JESSICA-7 Assessment Tool: JESSICA-7 Assessment 42607 Physical exam (Primary Care) Vital Signs: Last Vital Signs Temp 98.9 F 03/03/25 13:35 Pulse 68 03/03/25 13:35 Resp 18 03/03/25 13:35 BP 144/78 H 03/03/25 13:35 Pulse Ox 98 03/03/25 13:35 Oxygen Delivery Method Room Air 03/03/25 13:35 BMI result Body Mass Index 27.1 Tobacco/Smoking Status: Tobacco use Status Tobacco use date assessed 03/03/25 03/03/25 13:41 Patient Tobacco Use Status Current everyday Tobacco 03/03/25 13:41 e-Cigarette/Vaping Use Never Used 03/03/25 13:41 PHQ-9: PHQ-9 Score PHQ-9: Total score 0 03/03/25 13:41 Depression Screening Interpretation: Negative Thrive Assessment: Date of Thrive Assessment Date Thrive assessed 03/03/25 03/03/25 13:41 Currently or been in a relationship where the following occur: No concerns reported Coding Level of Care Code Est Pt Level 3 (04104) Est Pt Prev Care 40-64y(58405) Diagnoses Encounter for routine adult physical exam with abnormal findings Z. Migraines G43.909 Additional Codes JESSICA-7 Assessment Billing - JESSICA-7 Assessment Tool: JESSICA-7 Assessment 82137 ([id number]) PHQ-9 - 90107 - PHQ-9 Billing: Yes ([id number]) Assessment & Plan Assessment & Plan (1) Encounter for routine adult physical exam with abnormal findings: Code(s): Z. - Encounter for general adult medical examination with abnormal findings Category: Medical (2) Migraines: Code(s): G43.909 - Migraine, unspecified, not intractable, without status migrainosus Category: Medical Plan . Orders: Orders TSH reflex Free T4 Today Z. - Encounter for general adult medical examination with abnormal findings Lipid Panel Today Z. - Encounter for general adult medical examination with abnormal findings MR head/brain wo con Today G43.909 - Migraine, unspecified, not intractable, without status migrainosus AMB EKG-In Office Today Z. - Encounter for general adult medical examination with abnormal findings Complete Blood Count Auto Diff Today Z. - Encounter for general adult medical examination with abnormal findings Comprehensive Drewsey. Panel Fast Today . - Encounter for general adult medical examination with abnormal findings UA CC w/rflx Micro + Cult Today Z. - Encounter for general adult medical examination with abnormal findings Referrals Neurology Referral G43.909 - Migraine, unspecified, not intractable, without status migrainosus
== END 2025-03-03 16:42 | disposition home or self-care (01) ==
LOC: HO.HMCC 13:33
PROVIDERS: PCP Nurse Practitioner Family; Visit Provider Nurse Practitioner Family
DX: Z00.01 Encounter for general adult medical examination with abnormal findings (principal); G43.909 Migraine, unspecified, not intractable, without status migrainosus

== ENCOUNTER → 2025-03-03 13:33 | Outpatient (BNVA) | payer BC, SELFPAY | PROVIDERS: PCP Nurse Practitioner Family; Visit Provider Nurse Practitioner Family | DX: Z00.01 Encounter for general adult medical examination with abnormal findings (principal); G43.909 Migraine, unspecified, not intractable, without status migrainosus; R00.2 Palpitations; B35.4 Tinea corporis; I10 Essential (primary) hypertension | CPT/HCPCS: 93005; 96127 ==

== ENCOUNTER 2025-03-16 12:44 | Outpatient (AMB) | payer BC, SELFPAY ==
--- NOTE | 2025-03-16 12:51 | A.OFFVIS_ITS ---
Intake Visit Reasons: 1YR UA Intake Note: Patient is present for 1Y/UA Urology Medication:NONE Antibiotic Allergy:NONE Blood Thinner:NONE Adjunct History Instructor Required: No Allergies No Known Allergies Allergy (Verified 03/16/25 12:54) HPI Comments Details: Suhas Bustos is a very pleasant 44-year-old male patient of Dr. Abernathy. He presents to the office today for follow-up of his microscopic hematuria. In discussion with the patient today reports to be doing and feeling well. He denies having had any bothersome urinary issues or concerns since his last office visit here 1 year ago. Previous workup has included a CT urogram 01/15 noted cause for patient's hematuria was not found. Incidental note made of Bosniak class 1 renal cyst which require no additional follow-up per radiology report. He also underwent in office cystoscopy with Dr. Hayes 03/17 that noted normal cystoscopy. In office urinalysis results reviewed with the patient today. 3+ microscopic hematuria otherwise within normal limits. Previous urine cytologies are as follows: Urine Cytology: 03/15 Negative for high grade urothelial carcinoma, 01/14 Atypical urothelial cells. In discussion with the patient today he reports a longstanding history of nicotine dependence for over 22 years. He reports smoking approximately half a pack per day. He otherwise denies any bothersome urinary issues or concerns. He denies denies urinary urgency, urinary frequency, incontinence, nocturia, hematuria, dysuria, foul smelling urine, changes to urinary stream, flank pain, fever, and or chills. He is happy with his current voiding parameters. Discussed at length potential causes of microscopic hematuria in the setting of nicotine dependence. I discussed reasons for blood in the urine may include but are not limited to kidney stones, cancer in the urinary tract, BPH, kidney stone disease or inflammatory conditions of the urinary tract. He otherwise offers no other issues or concerns at this time. [facility] Medical History Bilateral renal cysts Surgical History No pertinent past surgical history Family History Father Prostate cancer Mother No problems noted. Social History Housing: House Alcohol intake: never Patient Tobacco Use Status: Current everyday Tobacco user Cigarettes Per Day: 10 Years Smoked: 20 e-Cigarette/Vaping Use: Never Used Second Hand Smoke Exposure: No service: No Current occupational status: employed Current occupation: [employer] Cognitive needs: No Hearing needs: No Vision needs: No Review of Systems Const All systems reviewed & are unremarkable except as noted in HPI and below Physical Exam Const General: cooperative, healthy appearing, comfortable, no acute distress, well developed, alert and awake Orientation/consciousness: patient oriented x3 Limitations: no limitations HEENT Head: Yes normal to inspection, Yes normocephalic and Yes atraumatic Ears: hearing grossly normal bilaterally Eyes General: appearance normal, both eyes and all related structures Neck Neck: Yes normal visual inspection and Yes trachea midline Chest Chest palpation & inspection: normal inspection of the chest Resp Effort & Inspection: normal respiratory effort and able to speak in complete sentences Cardio Rate: regular rate GI Inspection: Yes normal to inspection General: Yes no CVA tenderness Back/Spine/Pelvis Back: no CVA tenderness Skin General skin exam: no rashes or lesions noted Neuro General: patient oriented x3 Extrem General: Yes normal to inspection Psych Appearance: grossly normal and well kempt Mental Status: mental status grossly normal Speech and movement: Normal speech and movement present and Clear speech present Affect: normal affect Attitude: cooperative Thought process: Normal thought process present Thought content: Normal thought content present Insight: Fair insight present (Psych) Judgement: Fair judgement present (Psych) Results AMB Urinalysis, Automated UA Leukoctes 0 Marva/uL Last Edit by BALTAZAR Santos on 03/16/25 13:08 UA Nitrite Negative Last Edit by BALTAZAR Santos on 03/16/25 13:08 UA Urobilinogen 0.2 mg/dL Last Edit by BALTAZAR Santos on 03/16/25 13:0 8 UA Protein 0 mg/dL Last Edit by BALTAZAR Santos on 03/16/25 13:08 UA pH 7.0 Last Edit by BALTAZAR Santos on 03/16/25 13:08 UA Blood 200 Yoshi/uL Last Edit by BALTAZAR Santos on 03/16/25 13:08 UA Specific [place] 1.005 Last Edit by BALTAZAR Santos on 03/16/25 13: 08 UA Ketone Negative Last Edit by BALTAZAR Santos on 03/16/25 13:08 UA Bilirubin 0 mg/dL Last Edit by BALTAZAR Santos on 03/16/25 13:08 UA Glucose 0 mg/dL Last Edit by BALTAZAR Santos on 03/16/25 13:08 Results Reviewed Results Reviewed: Laboratory Last Values Urine pH (Auto) 7.0 03/16/25 13:07 Specific [place] (Auto) 1.005 03/16/25 13:07 Urine Protein (Auto) 0 mg/dL 03/16/25 13:07 Glucose (UA)(Auto) 0 mg/dL 03/16/25 13:07 Urine Ketones (Auto) Negative 03/16/25 13:07 Urine Blood (Auto) 200 Yoshi/uL 03/16/25 13:07 Urine Nitrite (Auto) Negative 03/16/25 13:07 Urine Bilirubin (Auto) 0 mg/dL 03/16/25 13:07 Urine Urobilinogen (Auto) 0.2 mg/dL 03/16/25 13:07 Leukocyte Esterase (Auto) 0 Marva/uL 03/16/25 13:07 Assessment & Plan Assessment & Plan (1) Nicotine dependence: Code(s): F17.200 - Nicotine dependence, unspecified, uncomplicated Category: Medical (2) Microhematuria: Code(s): R31.29 - Other microscopic hematuria Category: Medical Plan In office urinalysis results reviewed with the patient today; as noted above; will send for urine cytology. Discussed at length potential causes of microscopic hematuria in the setting of nicotine dependence. Patient otherwise denies any bothersome urinary issues or concerns. We did discussed importance of quitting/limiting nicotine dependence for overall health and well-being He reports be happy with current voiding parameters. Will continue with surveillance monitoring. Follow-up in 1 year with UA; or sooner with any issues, concerns, and or questions. Orders: Orders AMB Urinalysis Automated Today Z13.9 - Encounter for screening, unspecified Urine Cytology Today R31.29 - Other microscopic hematuria Patient Instructions: The patient had an opportunity to ask questions regarding the treatment plan. All questions were answered. Physical exam, labs, and imaging were discussed and reviewed in detail. As well as risks, benefits, and discussion of treatment choices. No major barriers to understanding were identified. The patient expressed understanding and agreement with the above treatment plan. The patient was made aware they should contact our office by phone for worsening of their current condition, the appearance of new symptoms, or with any questions or concerns. Compliance is encouraged with any medications and follow up testing that is ordered. It is a privilege to be allowed the opportunity to participate in? your urological care.? Again, if you have any questions or concerns If you have any questions or concerns please do not hesitate to contact me. The office is [phone]. This note is constructed using voice recognition software. While every effort has been made to ensure accuracy library paraprofessional errors may have been included. Yours sincerely, YEYO Plata Coding Level of Care Code Est Pt Level 3 (85963) Diagnoses Nicotine dependence F17.200 Microhematuria R31.29
== END 2025-03-16 13:17 | disposition home or self-care (01) ==
LOC: HO.HUSH 12:44
PROVIDERS: PCP Nurse Practitioner Family; Visit Provider Nurse Practitioner Family
DX: F17.200 Nicotine dependence, unspecified, uncomplicated (principal); R31.29 Other microscopic hematuria; Z13.9 Encounter for screening, unspecified
CPT/HCPCS: 99213

== ENCOUNTER 2025-03-16 12:44 | Outpatient (REF) | payer BC, SELFPAY | END 2025-03-16 12:45 | disposition home or self-care (01) | LOC: HO.LAB 12:44 | PROVIDERS: PCP Nurse Practitioner Family; Visit Provider Nurse Practitioner Family | DX: R31.29 Other microscopic hematuria (principal); F17.210 Nicotine dependence, cigarettes, uncomplicated; Z13.89 Encounter for screening for other disorder | CPT/HCPCS: 81003; 88112 ==